=== PATIENT | female | born 1990 | race Caucasian/White ===

== ENCOUNTER 2016-10-16 09:04 | Emergency (ER) | payer OTHER ==
[2016-10-16 09:33] VITALS: BP 113/77; PULSE 70; RESP 14; TEMP 97.7; O2SAT 97
--- NOTE | 2016-10-16 10:56 | UCPHY ---
H & P Patient Type: Established HPI/ROS: This patient presents with a chief complaint of right eye irritation, swelling, erythema and exudate which began last night. She has also noticed some early symptoms on the left but which are much less prominent. Her vision is unaffected and she denies photophobia.. In addition the patient has a mild sore throat and nasal congestion but no fever or cough. Smoking Status: Never smoked Physical Exam: This is a well-developed well-nourished female who is in mild discomfort. She is alert, lucid and has a normal gait and mental status. Examination of the right eye reveals some swelling of the lower lid associated with conjunctiva will injection and obvious exudate. Examination of the left eye reveals some exudate but there is minimal conjunctival injection. Pupils are equal round reactive to light, extraocular muscle functions intact. There is no obvious photophobia. Constitutional: Initial Vital Signs Temperature (C) 36.5 C 10/16/16 09:28 Heart Rate 70 10/16/16 09:28 Respiratory Rate 14 10/16/16 09:28 Blood Pressure 113/77 10/16/16 09:28 O2 Sat (%) 97 10/16/16 09:28 O2 Delivery Mode Room Air Allergies/Adverse Reactions: Sulfa (Sulfonamide Antibiotics) Allergy (Verified 10/16/16 09:32) Home Medications: Medication Instructions Recorded Gentamicin 0.3% [Gentak 0.3%] 2 drops EACHEYE Q4H #1 opht.btl 10/16/16 Medical Decision Making Differential Diagnosis: This patient's symptoms are probably viral but I feel that antibiotics are indicated given the degree of symptoms and clinical findings. Departure - Departure Disposition: Home, Routine, Self-Care Clinical Impression: Conjunctivitis Qualifiers: Conjunctivitis type: acute Acute conjunctivitis type: unspecified Laterality: bilateral Qualified Code(s): H10.33 - Unspecified acute conjunctivitis, bilateral Upper respiratory infection Qualifiers: URI type: unspecified viral URI Qualified Code(s): J06.9 - Acute upper respiratory infection, unspecified; B97.89 - Other viral agents as the cause of diseases classified elsewhere Condition: Good Instructions: Conjunctivitis (ED), Upper Respiratory Infection (ED) Additional Instructions: If your symptoms have not improved in 3 or 4 days you should be re-evaluated. If you feel that your symptoms are worsening you should be seen right away. Apply warm packs to your right eye several times daily. Adult Pain & Fever Control: We recommend Acetaminophen (Tylenol) and Ibuprofen (Motrin, Advil) for pain and fever control. When fever is high or pain severe, both drugs can be used at the same time, but at different intervals. Please note the time differences. Your dose is: Acetaminophen [650]mg every 4 to 6 hours ibuprofen [600]mg every [6] hours with food OR naproxen Sodium (Aleve) [440]mg every 12 hours. Note: do not take Acetaminophen with Hydrocodone (Vicodin, Lortab) or Oxycodone (Percocet). These medications also contain Acetaminophen. No more than 3000 mg of Acetaminophen should be taken in 24 hours (for an adult) . The maximal dose of ibuprofen that it is safe in a 24-hour period is 2400 mg. You may take 400 mg every 4 hours, 600 mg every 6 hours or 800 mg every 8 hours safely. Referrals: Ayaka Ordaz MD [Primary Care Provider] - As per Instructions Prescriptions: Gentamicin 0.3% [Gentak 0.3%] 2 drops EACHEYE Q4H #1 opht.btl - PQRS PQRS Measurement: Not applicable
== END 2016-10-16 11:17 | disposition home or self-care (01) ==
LOC: CED 09:04
DX: H10.33 Unspecified acute conjunctivitis, bilateral (principal); B97.89 Other viral agents as the cause of diseases classified elsewhere
CPT/HCPCS: 99214-PO; G0463-PO